=== PATIENT | male | born 1985 | race Caucasian/White ===

== ENCOUNTER 2017-08-13 03:24 | Observation (INO) | payer OTHER ==
[2017-08-13] MEDS ORDERED: Sodium Chloride 0.9% 1000 ML 1,000 ML IV STA (03:41)
[2017-08-13] MEDS ORDERED: GI COCKTAIL 45 ML (Maalox/Lidocaine) PO ONE ×2 (03:41→04:21)
--- NOTE | 2017-08-13 03:48 | ERPHSYRPT ---
- History of Present Illness Time Seen by Provider: 08/13/17 03:35 Historian: patient Exam Limitations: no limitations Patient Subjective Stated Complaint: mid abdomen pain starting at 0100. no vomiting no fever. has had similar episode but not this bad. Triage Nursing Assessment: distressed with mid epigastric pain. pain goes thru to back pain on palpation.. color pale skin w/d denies vomiting has had some diarrhea. denies fever but has had some burning with urination. Physician History: SINCE 89 TODAY PT HAS HAD CONSTANT SHARP EPIGASTRIC PAIN RADIATING TO THE BACK WITH DYSURIA AND DIARRHEA X2 WITHOUT BLOOD. PT DENIES CHEST PAIN, SHORTNESS OF AIR, FEVER. Allergies/Adverse Reactions: No Known Drug Allergies Allergy (Verified 08/13/17 03:42) Home Medications: Alprazolam 1 mg [Xanax 1 mg] 1 mg PO Q4-6HPRN PRN 08/13/17 [History] Paroxetine HCl 20 mg [Paxil 20 MG] 20 mg PO DAILY 08/13/17 [History] Hx Tetanus, Diphtheria Vaccination/Date Given: Yes Hx Influenza Vaccination/Date Given: No Hx Pneumococcal Vaccination/Date Given: No - Review of Systems Constitutional: No Fever Respiratory: No Dyspnea Cardiac: No Chest Pain Abdominal/Gastrointestinal: Abdominal Pain, Diarrhea Genitourinary Symptoms: Dysuria Musculoskeletal: Back Pain Endocrine: No Excessive Sweating All Other Systems: Reviewed and Negative - Past Medical History Pertinent Past Medical History: Yes Neurological History: Epilepsy - Past Surgical History Past Surgical History: Yes - Social History Smoking Status: Never smoker How long have you smoked: yrs Exposure to second hand smoke: No Drug Use: none Patient Lives Alone: No - Nursing Vital Signs Nursing Vital Signs: Initial Vital Signs Temperature 97.4 F 08/13/17 03:29 Pulse Rate 60 08/13/17 03:29 Respiratory Rate 20 08/13/17 03:29 Blood Pressure 134/88 08/13/17 03:29 O2 Sat by Pulse Oximetry 95 08/13/17 03:29 Pain Scale Pain Intensity 7 - Physical Exam General Appearance: alert Eye Exam: PERRL/EOMI Ears, Nose, Throat Exam: TMs normal, pharynx normal Neck Exam: normal inspection Respiratory Exam: lungs clear Cardiovascular Exam: normal heart sounds Gastrointestinal/Abdomen Exam: soft, normal bowel sounds, tenderness (MILD DIFFUSE TENDERNESS) Back Exam: normal range of motion Extremity Exam: normal inspection, No pedal edema Neurologic Exam: alert, cooperative Skin Exam: warm, dry SpO2 Interpretation: normal SpO2: 95 Oxygen Delivery: Room Air - Course Nursing assessment & vital signs reviewed: Yes Ordered Tests: Active Orders 24 hr Category Date Time Status IV Insertion STAT Care 08/13/17 03:41 Active AMYLASE Stat Lab 08/13/17 03:40 Completed CBC W DIFF Stat Lab 08/13/17 03:40 Completed CMP Stat Lab 08/13/17 03:40 Completed LIPASE Stat Lab 08/13/17 03:40 Completed MAG [MAGNESIUM] Stat Lab 08/13/17 03:40 Completed UA W/RFX UR CULTURE Stat Lab 08/13/17 03:40 Completed Urine Triage Profile Stat Lab 08/13/17 03:40 Completed Medication Summary Discontinued Medications Generic Name Dose Route Start Last Admin Trade Name Freq PRN Reason Stop Dose Admin Al Hydrox/Mg Hydrox/Simethicone Confirm 08/13/17 03:49 Maalox Es 30 Ml Unit Dose Administered 08/13/17 03:50 Dose 30 ml .ROUTE .STK-MED ONE Al Hydrox/Mg Hydrox/Simethicone Confirm 08/13/17 04:25 Maalox Es 30 Ml Unit Dose Administered 08/13/17 04:26 Dose 30 ml .ROUTE .STK-MED ONE Sodium Chloride 1,000 mls @ 999 mls/hr 08/13/17 03:41 08/13/17 03:55 Sodium Chloride 0.9% 1000 Ml IV 08/13/17 04:41 999 mls/hr .Q1H1M STA Administration Sodium Chloride Confirm 08/13/17 03:51 Sodium Chloride 0.9% 1000 Ml Administered 08/13/17 03:52 Dose 1,000 mls @ ud .ROUTE .STK-MED ONE Lidocaine HCl Confirm 08/13/17 03:49 Xylocaine Hcl Viscous * Administered 08/13/17 03:50 Dose 15 ml .ROUTE .STK-MED ONE Lidocaine HCl Confirm 08/13/17 04:24 Xylocaine Hcl Viscous * Administered 08/13/17 04:25 Dose 15 ml .ROUTE .STK-MED ONE Magnesium Hydroxide 45 ml 08/13/17 03:41 08/13/17 03:55 Gi Cocktail 45 Ml (Maalox/Lidocaine) PO 08/13/17 03:42 45 ml STAT ONE Administration Magnesium Hydroxide 45 ml 08/13/17 04:21 08/13/17 04:26 Gi Cocktail 45 Ml (Maalox/Lidocaine) PO 08/13/17 04:22 45 ml STAT ONE Administration Lab/Rad Data: Laboratory Result Diagrams 08/13/17 03:40 08/13/17 03:40 Laboratory Results 08/13/17 08/13/17 08/13/17 Range/Units 03:40 03:40 03:40 WBC (4.0-10.5) K/mm3 RBC (4.1-5.6) M/mm3 Hgb (12.5-18.0) gm/dl Hct (42-50) % MCV (78-100) fl MCH (26-32) pg MCHC (32-36) g/dl RDW (11.5-14.0) % Plt Count (150-450) K/mm3 MPV (6-9.5) fl Gran % (36.0-66.0) % Eos # (Auto) (0-0.5) Absolute Lymphs (auto) (1.0-4.6) Absolute Monos (auto) (0.0-1.3) Lymphocytes % (24.0-44.0) % Monocytes % (0.0-12.0) % Eosinophils % (0.00-5.0) % Basophils % (0.0-0.4) % Absolute Granulocytes (1.4-6.9) Basophils # (0-0.4) Sodium (137-145) mmol/L Potassium (3.5-5.1) mmol/L Chloride (98-107) mmol/L Carbon Dioxide (22-30) mmol/L Anion Gap (5-15) MEQ/L BUN (9-20) mg/dL Creatinine (0.66-1.25) mg/dL Estimated GFR ML/MIN Glucose (74-106) mg/dL Calcium (8.4-10.2) mg/dL Magnesium 2.2 (1.6-2.3) mg/dL Total Bilirubin (0.2-1.3) mg/dL AST (17-59) U/L ALT (0-50) U/L Alkaline Phosphatase (38-126) U/L Serum Total Protein (6.3-8.2) g/dL Albumin (3.5-5.0) g/dL Amylase (30-110) U/L Lipase (23-300) U/L Ur Collection Type CLEAN CATCH Urine Color YELLOW (YELLOW) Urine Appearance CLEAR (CLEAR) Urine pH 7.0 (5-6) Ur Specific [place] 1.015 (1.005-1.025) Urine Protein NEGATIVE (Negative) Urine Ketones NEGATIVE (NEGATIVE) Urine Blood NEGATIVE (0-5) Wili/ul Urine Nitrite NEGATIVE (NEGATIVE) Urine Bilirubin NEGATIVE (NEGATIVE) Urine Urobilinogen NORMAL (0-1) mg/dL Ur Leukocyte Esterase NEGATIVE (NEGATIVE) Urine Culture Reflexed NO (NO) Urine Glucose NEGATIVE (NEGATIVE) mg/dL Urine Opiates Level NEGATIVE (NEGATIVE) Ur Methadone NEGATIVE (NEGATIVE) Urine Barbiturates NEGATIVE (NEGATIVE) Ur Phencyclidine (PCP) NEGATIVE (NEGATIVE) Urine Amphetamine NEGATIVE (NEGATIVE) U Benzodiazepine Level NEGATIVE (NEGATIVE) Urine Cocaine NEGATIVE (NEGATIVE) Urine Marijuana (THC) NEGATIVE (NEGATIVE) Specimen Received 08/13/17 0340 08/13/17 08/13/17 Range/Units 03:40 03:40 WBC 15.7 H (4.0-10.5) K/mm3 RBC 5.55 (4.1-5.6) M/mm3 Hgb 16.7 (12.5-18.0) gm/dl Hct 47.8 (42-50) % MCV 86.1 (78-100) fl MCH 30.1 (26-32) pg MCHC 34.9 (32-36) g/dl RDW 13.0 (11.5-14.0) % Plt Count 329 (150-450) K/mm3 MPV 10.1 H (6-9.5) fl Gran % 75.0 H (36.0-66.0) % Eos # (Auto) 0.17 (0-0.5) Absolute Lymphs (auto) 2.66 (1.0-4.6) Absolute Monos (auto) 1.04 (0.0-1.3) Lymphocytes % 17.0 L (24.0-44.0) % Monocytes % 6.6 (0.0-12.0) % Eosinophils % 1.1 (0.00-5.0) % Basophils % 0.3 (0.0-0.4) % Absolute Granulocytes 11.78 H (1.4-6.9) Basophils # 0.04 (0-0.4) Sodium 139 (137-145) mmol/L Potassium 3.6 (3.5-5.1) mmol/L Chloride 102 (98-107) mmol/L Carbon Dioxide 26 (22-30) mmol/L Anion Gap 15.3 H (5-15) MEQ/L BUN 15 (9-20) mg/dL Creatinine 0.98 (0.66-1.25) mg/dL Estimated GFR > 60.0 ML/MIN Glucose 154 H (74-106) mg/dL Calcium 9.7 (8.4-10.2) mg/dL Magnesium (1.6-2.3) mg/dL Total Bilirubin 0.60 (0.2-1.3) mg/dL AST 20 (17-59) U/L ALT 31 (0-50) U/L Alkaline Phosphatase 107 (38-126) U/L Serum Total Protein 7.6 (6.3-8.2) g/dL Albumin 4.6 (3.5-5.0) g/dL Amylase 77 (30-110) U/L Lipase 161 (23-300) U/L Ur Collection Type Urine Color (YELLOW) Urine Appearance (CLEAR) Urine pH (5-6) Ur Specific [place] (1.005-1.025) Urine Protein (Negative) Urine Ketones (NEGATIVE) Urine Blood (0-5) Wili/ul Urine Nitrite (NEGATIVE) Urine Bilirubin (NEGATIVE) Urine Urobilinogen (0-1) mg/dL Ur Leukocyte Esterase (NEGATIVE) Urine Culture Reflexed (NO) Urine Glucose (NEGATIVE) mg/dL Urine Opiates Level (NEGATIVE) Ur Methadone (NEGATIVE) Urine Barbiturates (NEGATIVE) Ur Phencyclidine (PCP) (NEGATIVE) Urine Amphetamine (NEGATIVE) U Benzodiazepine Level (NEGATIVE) Urine Cocaine (NEGATIVE) Urine Marijuana (THC) (NEGATIVE) Specimen Received - Progress Discussed with : Sharath (OBS - [id number]) - Departure Time of Disposition: 05:18 Departure Disposition: Observation Clinical Impression: ABDOMINAL PAIN Condition: Stable Critical Care Time: No Referrals: IRINA COLEMAN [Primary Care Provider] -
[2017-08-13] MEDS ORDERED: XYLOCAINE HCl Viscous ONE ×2 (03:49→04:24)
[2017-08-13] MEDS ORDERED: MAALOX ES 30 ML UNIT DOSE ONE ×2 (03:49→04:25)
[2017-08-13] MEDS ORDERED: Sodium Chloride 0.9% 1000 ML 1,000 ML ONE (03:51)
[2017-08-13 03:54] LABS: BASOPHIL % 0.3 % (0.0-0.4); Basophil (Absolute #) 0.04 (0-0.4); Eosinophil % 1.1 % (0.00-5.0); Eosinophil (Absolute #) 0.17 (0-0.5); Granulocyte Absolute (ANC) 11.78 (1.4-6.9); Hematocrit 47.8 % (42-50); Hemoglobin 16.7 gm/dl (12.5-18.0); Lymphocyte (Absolute #) 2.66 (1.0-4.6); Mean Cell Volume 86.1 fl (78-100); Mean Corpuscular Hemoglobin 30.1 pg (26-32); Mean Corpuscular Hgb Concent. 34.9 g/dl (32-36); Mean Platelet Volume 10.1 fl (6-9.5); Monocyte (Absolute #) 1.04 (0.0-1.3); Monocytes % 6.6 % (0.0-12.0); Platelet Count 329 K/mm3 (150-450); Red Blood Count 5.55 M/mm3 (4.1-5.6); White Blood Count 15.7 K/mm3 (4.0-10.5)
[2017-08-13 04:15] LABS: ALBUMIN 4.6 g/dL (3.5-5.0); ALKALINE PHOSPHATASE 107 U/L (38-126); AMYLASE 77 U/L (30-110); ANION GAP 15.3 MEQ/L (5-15); BLOOD UREA NITROGEN 15 mg/dL (9-20); CHLORIDE 102 mmol/L (98-107); Calcium 9.7 mg/dL (8.4-10.2); Carbon Dioxide 26 mmol/L (22-30); Creatinine 1 0.98 mg/dL (0.66-1.25); Glucose 154 mg/dL (74-106); LIPASE 161 U/L (23-300); Potassium 3.6 mmol/L (3.5-5.1); SGOT/AST 20 U/L (17-59); SGPT/ALT 31 U/L (0-50); SODIUM 139 mmol/L (137-145); Total Protein 7.6 g/dL (6.3-8.2)
[2017-08-13 04:25] LABS: Amphetamine,Urine NEGATIVE (NEGATIVE); Barbiturate,Urine NEGATIVE (NEGATIVE); Benzodiazepine,Urine NEGATIVE (NEGATIVE); Cocaine,Urine NEGATIVE (NEGATIVE); Methadone,Urine NEGATIVE (NEGATIVE); Opiate,Urine NEGATIVE (NEGATIVE); PCP,Urine NEGATIVE (NEGATIVE); THC,Urine NEGATIVE (NEGATIVE)
[2017-08-13 04:39] LABS: Appearance CLEAR (CLEAR); Bilirubin NEGATIVE (NEGATIVE); Blood NEGATIVE Ery/ul (0-5); Glucose NEGATIVE (NEGATIVE); Ketones NEGATIVE (NEGATIVE); Leukocyte Esterase NEGATIVE (NEGATIVE); Nitrite NEGATIVE (NEGATIVE); Protein,Urine Dip NEGATIVE (Negative); Specific Gravity 1.015 (1.005-1.025); Urobilinogen NORMAL mg/dL (0-1)
[2017-08-13] MEDS ORDERED: PROTONIX 40 MG IV IV ONE ×2 (05:21→05:25)
[2017-08-13] MEDS ORDERED: Zofran 4 MG/2 ML VIAL IV ONE (05:36)
[2017-08-13] MEDS ORDERED: DIPRIVAN 200 MG/20 ML IV ONE (05:36)
[2017-08-13] MEDS ORDERED: Decadron 4 MG INJ IV ONE (05:36)
[2017-08-13] MEDS ORDERED: Zemuron 100 MG/10 ML IJ ONE (05:36)
[2017-08-13] MEDS ORDERED: Quelicin Fliptop 200 MG/10 ML IJ ONE (05:36)
[2017-08-13] MEDS ORDERED: TORAdol 30 mg Injection IJ ONE (05:36)
[2017-08-13] MEDS ORDERED: BRIDION 200MG/2ML IV ONE (05:36)
[2017-08-13] MEDS ORDERED: Phenergan 25 MG INJ IV PRN (06:09)
[2017-08-13] MEDS ORDERED: MORPHINE SULFATE 2 MG INJ IV PRN (06:09)
[2017-08-13] MEDS: Sodium Chloride 0.9% 1000 ML 1,000 ML IV SCH ×2 (06:37→17:55)
[2017-08-13] MEDS ORDERED: Versed 2 MG/2 ML Injection IV ONE (09:13)
[2017-08-13] MEDS ORDERED: SUBLIMAZE 250 MCG/5 ML IV ONE (09:13)
--- NOTE | 2017-08-13 09:53 | XRAY ---
Indication: Mid abdominal pain. Multiple contiguous axial images obtained through the abdomen and pelvis without contrast as ordered. Comparison: None Lung bases are clear. Heart is not enlarged. Noncontrasted stomach and bowel loops appear nonobstructed. Normal appendix. Gallbladder demonstrates several tiny cholesterol stones with gallbladder wall thickening and small pericholecystic fluid concerning for cholecystitis. No abnormal biliary distention. No free air. Nonobstructing bilateral renal micro-calculi, largest left lower pole measuring 6 mm. 1.9 cm right adrenal adenoma. Remaining liver, pancreas, spleen, left adrenal gland, both ureters, bladder, and aorta appear unremarkable for noncontrast exam. Osseous structures intact. Impression: 1. Cholelithiasis with CT features favoring cholecystitis. 2. Nonobstructing bilateral renal micro-calculi. 3. Right adrenal adenoma. CT DI 23.28
--- NOTE | 2017-08-13 10:51 | XRAY ---
Indication: Abdominal pain. Two-dimensional gallbladder sonogram performed. Comparison: None Site Operations Manager notes excessive bowel gas limiting evaluation of the pancreas and liver. Visualized portions of the liver and pancreas unremarkable. No ascites. Gallbladder partially contracted with numerous tiny intraluminal stones. Abnormal gallbladder wall thickening measuring 5.5 mm. No pericholecystic fluid. Common bile duct measured 4.1 mm. No intrahepatic biliary distention. Right kidney measures 9.9 cm in length and appears sonographically normal. Impression: Cholelithiasis with abnormal wall thickening favoring chronic cholecystitis. No abnormal biliary distention.
[2017-08-13] MEDS ORDERED: XANAX 1 MG PO PRN (11:25)
[2017-08-13] MEDS ORDERED: Nicoderm CQ 21 MG TOP SCH (13:45)
[2017-08-13] MEDS ORDERED: MEFOXIN 2 GM PREMIX** 2 GM/50 ML ML IV SCH (15:00)
[2017-08-13] MEDS ORDERED: Lactated Ringers 1,000 ML IV SCH ×2 (15:00→19:30)
[2017-08-13] MEDS ORDERED: Pepcid 20 MG VIAL IV ONE (15:03)
[2017-08-13] MEDS ORDERED: Pepcid 20 MG VIAL IV SCH (15:15)
[2017-08-13] MEDS ORDERED: Sensorcaine 0.25% 10 ML ONE (15:24)
[2017-08-13] MEDS ORDERED: Lactated Ringers 1,000 ML IV ONE (15:24)
[2017-08-13] MEDS ORDERED: Paxil 20 MG PO SCH (18:00)
[2017-08-13] MEDS ORDERED: MORPHINE SULFATE 4 MG INJ IV PRN (19:07)
[2017-08-13] MEDS ORDERED: NORCO 5/325 MG PO PRN (19:07)
[2017-08-13] MEDS ORDERED: Zofran 4 MG/2 ML VIAL IV PRN (19:07)
[2017-08-13] MEDS ORDERED: PROTONIX 40 MG IV IV SCH (22:00)
[2017-08-14] MEDS: Sodium Chloride 0.9% 1000 ML 1,000 ML IV SCH (02:41)
[2017-08-14] MEDS ORDERED: NORCO 5/325 MG PO PRN (06:28)
[2017-08-14 07:32] VITALS: BP 106/54; PULSE 76; O2SAT 96
--- NOTE | 2017-08-14 08:24 | PCM.DCORD ---
- Discharge Discharge Date: 08/14/17 Disposition: Home, Self-Care Condition: Stable Prescriptions: Continue Paroxetine HCl 20 mg [Paxil 20 MG] 20 mg PO 1800 Alprazolam 1 mg [Xanax 1 mg] 1 mg PO TIDPRN PRN PRN Reason: Anxiety Follow up with: SJ FOWLER [COURTESY STAFF] - 1 Week IRINA COLEMAN [Primary Care Provider] - 1 Week
--- NOTE | 2017-08-14 08:53 | CONS ---
CONSULT DATE: 08/13/2017 This patient is seen for Dr. David Aguirre who is director operations broadcast for our group today. He asked that I see the patient while I was down here doing some other outpatient procedures. HISTORY: Karthik Price over the past year or so he has had some intermittent upper abdominal pain associated with nausea and vomiting. Apparently he came in early this morning or during the night with epigastric pain with persistent nausea and vomiting. He is feeling a little bit better now. Apparently CT scan was not working last night but according to the staff he did have a CT scan today that showed cholelithiasis. He had ultrasound show gallbladder wall thickening, question of chronic cholecystitis or acute exacerbation of chronic cholecystitis. White blood cell count of 15.7 when he came in. He had a repeat since then. Liver function test and lipase within normal limits. PAST MEDICAL HISTORY: He has had some anxiety issues. He denies any chronic illnesses. History of epilepsy years ago according to the chart. He did mention this to me but not taking any medication. No recent seizures. He just had some recent anxiety issues. HOME MEDICATIONS: Xanax, Paxil. ALLERGIES: NKDA. FAMILY HISTORY: Cancer, diabetes, hypertension, liver problems, renal problems. SOCIAL HISTORY: One pack per day smoker. He reports occasional alcohol use, denies abuse. REVIEW OF SYSTEMS: Twelve systems reviewed per admission assessment. He denied any chest pain or palpitations. He is feeling better now. He wears glasses. Negative or noncontributory as above and per preadmission questionnaire. PHYSICAL EXAMINATION: Vital signs stable. GENERAL: No acute distress. HEENT: Sclera nonicteric. NECK: No JVD. CHEST: Equal excursion, nonlabored breathing. CVS: Regular rate and rhythm. ABDOMEN: Soft. No peritoneal signs. Some mild tenderness in epigastrium. EXTREMITIES: No significant edema. NEURO: Alert, moving extremities grossly symmetrically. No gross motor deficits noted. LAB DATA AND TESTS: Upper abdominal pain. CT and ultrasound showing cholelithiasis. He did have 1.9 cm adrenal adenoma per the radiologist. There is no bowel duct dilatation. He had microlithiasis as well. IMPRESSION: Symptomatic cholelithiasis probable chronic cholecystitis acute exacerbation. I feel he would benefit from cholecystectomy. Risks and benefits explained in detail but not limited to bleeding or infection, risk of trocar injury or hernia, small risk bowel, bladder or blood vessel injury, retained stone or sludge possibly requiring further procedure either open or ERCP, general risk of anesthesia, deep venous thrombosis, pulmonary embolism, pneumonia, perioperative risk of aches, pains, bloating, constipation and/or loose stools possibly even chronic in nature, possibility the procedure may not improve his symptoms. He may need further work up, testing, endoscopy, other studies or procedures. He understands and agrees to the planned procedure will proceed with laparoscopic cholecystectomy with possible open when OR time available.
[2017-08-14] MEDS ORDERED: Nicoderm CQ 21 MG TOP SCH (10:00)
--- NOTE | 2017-08-14 10:56 | OP ---
SURGERY DATE/TIME: 08/13/2017 1541 PREOPERATIVE DIAGNOSIS: Symptomatic cholelithiasis, acute exacerbation of chronic cholecystitis. POSTOPERATIVE DIAGNOSIS: Symptomatic cholelithiasis, acute exacerbation of chronic cholecystitis. Severe cholecystitis. PROCEDURE: Laparoscopic cholecystectomy. SURGEON: Dr. Tyree Stokes. ANESTHESIA: General. ESTIMATED BLOOD LOSS: Minimal. INDICATIONS: As noted above. Risks and benefits explained in detail but not limited to and consent obtained. DESCRIPTION OF PROCEDURE AND FINDINGS: The patient was taken to the OR. General anesthesia was induced. Abdomen prepped and draped in the usual sterile fashion. After official time out and no disagreement with planned procedure, a transverse incision made at the supraumbilical area. Fascia grasped and pulled upward. Veress needle inserted and tested with saline. Pneumoperitoneum accomplished insufflating opening pressure of 0-15. An 11 mm bladeless port and camera were inserted without difficulty followed by two - 5 mm right upper quadrant ports and 5 mm epigastric port. The gallbladder is grasped, quite distended, had extensive 5.5 to 6 mm thick wall. Dissection carried posterior lateral to anterior fashion. Extensive acute exacerbation, extensive chronic cholecystitis this took quite some time but slowly and carefully dissecting from posterior, lateral to anterior fashion. Slowly and carefully main cystic duct, infundibular and main cystic artery isolated until critical view obtained both anterior and posterior. It should be noted that the patient did have distended small bowel consistent with possible ileus or gross Crohn's disease. He did not have any evidence of prior abdominal surgery. No gross obstruction. This distended fluid-filled small bowel consisting of ileus whether he had gastroenteritis component or not in addition to acute exacerbation of chronic cholecystitis or just from his acute exacerbation of chronic cholecystitis is unclear. There was no inflammation in the right lower quadrant. Once the critical view was obtained both anteriorly and posteriorly, the cystic duct and cystic artery were clipped x3 and divided in usual fashion. Gallbladder slowly and carefully dissected free. It was quite vascular with clipping initial omental adhesion as necessary as well as side branches off cystic artery that were oozing directly on the gallbladder wall were clipped as necessary. It took some time but slowly and carefully this large stone filled distended gallbladder was slowly and carefully dissected free from the liver bed staying directly on the gallbladder wall clipping additional oozing side branch off the cystic artery directly on the gallbladder wall as necessary. Just prior to releasing from final attachments to the anterior edge of the liver the liver bed re-inspected. Copious amount of irrigation irrigating until clear. Clips were noted in place in cystic duct and cystic artery stumps. There are no signs of any active bleeding or bile leakage. It was felt there is no benefit in drain placement. Gallbladder released from final attachments to the anterior edge of the liver, placed in [place] sac, pulled up into the 10/11 umbilical port site. It was opened outside the abdomen, decompressed of bile with moderately large stones carefully crushed with [place] clamp, allowing the gallbladder to be pulled free and passed off without any intra-abdominal spillage. Fascia defect 10/11 closed with puncture closure device with #1 Vicryl. Pneumoperitoneum decompressed. After inspecting liver bed one last time clips noted in place in cystic duct and cystic artery stumps. There are no signs of any active bleeding or bile leakage. Copious amount of irrigation irrigating until clear. It was felt there was no benefit from drain placement. The wound was irrigated out. Skin incision closed with 4-0 Vicryl. Steri-Strips and sterile dressing applied. 0.25% Marcaine local injected along the skin incision fascial defect. The patient tolerated the procedure well. There were no immediate complications. There was no family available to discuss the findings with at this time.
--- NOTE | 2017-08-16 09:55 | SSS ---
DISCHARGE DIAGNOSIS: ACUTE CHOLECYSTITIS. CONSULTANTS: Dr. Stokes. OPERATIVE PROCEDURE: Laparoscopic cholecystectomy. HISTORY: The patient is a 32 year-old white male patient reporting severe abdominal pain in the epigastric region radiating through to the back. He had no vomiting and no fever. He has had similar episodes in the past but not to this degree. The patient was evaluated in the emergency room and admitted to the hospital for further evaluation and management. The CT scanner was down initially so we were unable to determine the initial source immediately. PAST MEDICAL/SURGICAL HISTORY: Otherwise significant for anxiety disorder. HOME MEDICATIONS: Alprazolam t.i.d. PRN for anxiety. Paroxetine 20 mg daily. ALLERGIES: NKDA. PHYSICAL EXAMINATION: Revealed a well nourished, well developed 32 year-old white male patient in mild to moderate discomfort presently. His vital signs in the emergency room showed a temperature 97.4F, pulse 60, respiratory rate 20, blood pressure 134/88. O2 saturation 95% on room air. HEENT: Normocephalic, atraumatic. Pupils equal round reactive to light. Extraocular movements intact. Oropharynx is pink and moist. NECK: Supple without lymphadenopathy, thyromegaly or JVD. CHEST: Clear to auscultation. HEART: Regular rate and rhythm without murmurs, rubs or gallops. ABDOMEN: Soft. No palpable masses were felt. There is no guarding or rebound present. EXTREMITIES: Without clubbing, cyanosis or edema. NEUROLOGIC: The patient is alert and oriented x3. LAB DATA AND TESTS: Initially showed a normal UA. He had a negative urine drug screen. His white blood cell count was elevated at 15,700. His hemoglobin 16.7, PLT count 329,000. He did have 35% granulocytes. His metabolic panel showed a nonfasting sugar at 154 and otherwise his metabolic panel was entirely normal. Amylase and lipase were in the normal range. Magnesium level was normal. HOSPITAL COURSE: The patient was admitted to the medicine gee. CT scanner when available examination did show cholelithiasis with CT features favoring cholecystitis, nonobstructive bilateral renal microcalculi and right renal adrenal adenoma. The patient had surgical consultation who agreed with the diagnosis. Gallbladder ultrasound showed cholecystitis with abnormal gallbladder wall thickening favoring chronic cholecystitis with no abnormal biliary distention. The patient did undergo laparoscopic cholecystectomy and by the next morning he was feeling much better and taking breakfast consisting of sausage and eggs. He was felt to be ready for discharge home at this point. Dr. Stokes wrote a prescription for [place] 5/325 mg on the chart record for him to have. He was allowed to go home. He was instructed to not take his Alprazolam along with the [place]. He will be seen in follow up in the office in one week or to return to the hospital for any further problems in the interim.
== END 2017-08-14 09:14 | disposition home or self-care (01) ==
LOC: ED 03:24 → MED SURG 05:35
PROVIDERS: ADMIT Family Medicine; ATTEND Family Medicine
PROC: 0FT44ZZ Resection of Gallbladder, Percutaneous Endoscopic Approach (ICD-10-PCS; principal; 2017-08-13)
DX: K80.00 Calculus of gallbladder with acute cholecystitis without obstruction (principal); K81.0 Acute cholecystitis; F41.9 Anxiety disorder, unspecified; Z79.899 Other long term (current) drug therapy
CPT/HCPCS: 36000; 36415; 47562; 74176; 76705; 80053; 80307; 81002; 82150; 83690; 83735; 85025; 96360; 96374; 99285; G0378; 88304; J0330; J0694; J1100; J1885; J2250; J2270; J2405; J2704; J3010; A9270-GY

== ENCOUNTER 2018-02-27 22:17 | Emergency (ER) | payer OTHER ==
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
[2018-02-27] MEDS ORDERED: AMOXIL 500 MG PO ONE (22:58)
[2018-02-27] MEDS ORDERED: NORCO 5/325 MG PO ONE (22:59)
[2018-02-27] MEDS ORDERED: NORCO 5/325 MG ONE (23:05)
[2018-02-27] MEDS ORDERED: AMOXIL 500 MG ONE (23:05)
[2018-02-27 23:26] VITALS: BP 146/110; PULSE 100; O2SAT 97
== END 2018-02-27 23:28 | disposition home or self-care (01) ==
LOC: ED 22:17
DX: K08.89 Other specified disorders of teeth and supporting structures (principal); K02.9 Dental caries, unspecified; S02.5XXA Fracture of tooth (traumatic), initial encounter for closed fracture; G40.909 Epilepsy, unspecified, not intractable, without status epilepticus; F41.9 Anxiety disorder, unspecified; Z72.0 Tobacco use
CPT/HCPCS: 99283; A9270-GY

== ENCOUNTER 2018-08-29 22:15 | Emergency (ER) | payer MEDICAID, OTHER ==
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
[2018-08-29 23:02] LABS: BASOPHIL % 0.6 % (0.0-0.4); Basophil (Absolute #) 0.06 (0-0.4); Eosinophil % 3.1 % (0.00-5.0); Granulocyte Absolute (ANC) 5.48 (1.4-6.9); Granulocytes % 56.8 % (36.0-66.0); Hematocrit 42.9 % (42-50); Hemoglobin 14.5 gm/dl (12.5-18.0); Lymphocyte (Absolute #) 2.82 (1.0-4.6); Lymphocytes % 29.3 % (24.0-44.0); Mean Cell Volume 89.7 fl (78-100); Mean Corpuscular Hemoglobin 30.3 pg (26-32); Mean Corpuscular Hgb Concent. 33.8 g/dl (32-36); Monocyte (Absolute #) 0.98 (0.0-1.3); Monocytes % 10.2 % (0.0-12.0); Platelet Count 256 K/mm3 (150-450); Red Blood Count 4.78 M/mm3 (4.1-5.6); Red Cell Distribution Width 13.2 % (11.5-14.0); White Blood Count 9.6 K/mm3 (4.0-10.5)
[2018-08-29 23:14] LABS: ALKALINE PHOSPHATASE 93 U/L (38-126); ANION GAP 13.8 MEQ/L (5-15); BLOOD UREA NITROGEN 16 mg/dL (9-20); CHLORIDE 105 mmol/L (98-107); Calcium 9.8 mg/dL (8.4-10.2); Carbon Dioxide 25 mmol/L (22-30); Creatinine 1 0.87 mg/dL (0.66-1.25); Glucose 93 mg/dL (74-106); SGOT/AST 17 U/L (17-59); SGPT/ALT 32 U/L (0-50); SODIUM 140 mmol/L (137-145); Total Protein 6.9 g/dL (6.3-8.2)
[2018-08-29 23:18] LABS: ACETAMINOPHEN < 10 ug/ml (10-30); ETHYL ALCOHOL < 10 mg/dL (0-10); SALICYLATE < 1.0 mg/dL (2-20)
[2018-08-30 00:04] VITALS: BP 126/86
[2018-08-30 01:06] LABS: Amphetamine,Urine NEGATIVE (NEGATIVE); Barbiturate,Urine NEGATIVE (NEGATIVE); Benzodiazepine,Urine NEGATIVE (NEGATIVE); Cocaine,Urine NEGATIVE (NEGATIVE); Methadone,Urine NEGATIVE (NEGATIVE); Opiate,Urine NEGATIVE (NEGATIVE); PCP,Urine NEGATIVE (NEGATIVE); THC,Urine NEGATIVE (NEGATIVE)
[2018-08-30 01:07] LABS: Appearance CLEAR (CLEAR); Bilirubin NEGATIVE (NEGATIVE); Blood NEGATIVE Ery/ul (0-5); Glucose NEGATIVE (NEGATIVE); Ketones NEGATIVE (NEGATIVE); Leukocyte Esterase NEGATIVE (NEGATIVE); Mucus SLIGHT /HPF (NEGATIVE); Nitrite NEGATIVE (NEGATIVE); Protein,Urine Dip NEGATIVE (Negative); RBC 0-2 /HPF (0-2); Specific Gravity 1.012 (1.005-1.025); Urobilinogen NEGATIVE mg/dL (0-1)
[2018-08-30 04:41] VITALS: PULSE 67; O2SAT 99
== END 2018-08-30 05:10 | disposition short-term general hospital (02) ==
LOC: ED 22:15
DX: R45.851 Suicidal ideations (principal)
CPT/HCPCS: 36415; 80053; 80307; 81001; 85025; 93005; 99285; G0481; G0480

== ENCOUNTER 2018-11-08 23:20 | Emergency (ER) | payer SELFPAY ==
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
[2018-11-08] MEDS ORDERED: MOTRIN 600 MG PO ONE (23:39)
[2018-11-08] MEDS ORDERED: PERCOCET TABLET 5/325MG PO STA (23:40)
[2018-11-08] MEDS ORDERED: MOTRIN 600 MG ONE (23:45)
[2018-11-08] MEDS ORDERED: PERCOCET TABLET 5/325MG ONE (23:45)
[2018-11-09 00:26] VITALS: BP 126/79; PULSE 69; O2SAT 99
--- NOTE | 2018-11-09 05:47 | XRAY ---
Indication: Pain following injury. Comparison: None 3 views of the right wrist demonstrates tiny scaphoid bone cyst. No other bony, articular, or soft tissue abnormalities.
== END 2018-11-09 00:26 | disposition home or self-care (01) ==
LOC: ED 23:20
DX: S60.211A Contusion of right wrist, initial encounter (principal); W22.03XA Walked into furniture, initial encounter; Y93.89 Activity, other specified
CPT/HCPCS: 73110; 99283; A9270-GY

== ENCOUNTER 2020-04-15 21:38 | Emergency (ER) | payer OTHER ==
[2020-04-15] MEDS ORDERED: Sodium Chloride 0.9% 1000 ML 1,000 ML IV STA (21:42)
[2020-04-15] MEDS ORDERED: Zofran 4 MG/2 ML VIAL IV ONE (21:42)
[2020-04-15] MEDS ORDERED: D50W 50 ml Abboject IV ONE ×2 (21:42→21:59)
[2020-04-15 21:55] LABS: Absolute Neutrophil Ct (ANC) 7.18 (1.4-6.9); BASOPHIL % 0.5 % (0.0-0.4); Basophil (Absolute #) 0.06 (0-0.4); Eosinophil (Absolute #) 0.12 (0-0.5); Lymphocyte (Absolute #) 3.36 (1.0-4.6); Lymphocytes % 28.8 % (24.0-44.0); Mean Cell Volume 89.3 fl (78-100); Mean Corpuscular Hemoglobin 29.8 pg (26-32); Mean Corpuscular Hgb Concent. 33.3 g/dl (32-36); Mean Platelet Volume 9.9 fl (7.5-11.0); Monocyte (Absolute #) 0.96 (0.0-1.3); Monocytes % 8.2 % (0.0-12.0); Neutrophil % 61.5 % (36.0-66.0); Platelet Count 358 K/mm3 (150-450); Red Blood Count 5.71 M/mm3 (4.1-5.6); Red Cell Distribution Width 13.5 % (11.5-14.0); White Blood Count 11.7 K/mm3 (4.0-10.5)
[2020-04-15 21:59] LABS: Appearance CLEAR (CLEAR); Bilirubin NEGATIVE (NEGATIVE); Blood NEGATIVE Ery/ul (0-5); Glucose NEGATIVE (NEGATIVE); Ketones NEGATIVE (NEGATIVE); Leukocyte Esterase NEGATIVE (NEGATIVE); Mucus SLIGHT /HPF (NEGATIVE); Nitrite NEGATIVE (NEGATIVE); Protein,Urine Dip NEGATIVE (Negative); Specific Gravity 1.002 (1.005-1.025); Urobilinogen NEGATIVE mg/dL (0-1)
[2020-04-15] MEDS ORDERED: Zofran 4 MG/2 ML VIAL ONE (21:59)
[2020-04-15] MEDS ORDERED: Sodium Chloride 0.9% 1000 ML 1,000 ML ONE (21:59)
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
[2020-04-15 22:04] VITALS: BP 117/81; PULSE 96; O2SAT 96
[2020-04-15 22:08] LABS: ALBUMIN 3.8 g/dL (3.5-5.0); ALKALINE PHOSPHATASE 87 U/L (38-126); ANION GAP 11.9 MEQ/L (5-15); BLOOD UREA NITROGEN 6 mg/dL (9-20); CHLORIDE 108 mmol/L (98-107); Calcium 9.5 mg/dL (8.4-10.2); Carbon Dioxide 22 mmol/L (22-30); Creatinine 1 0.92 mg/dL (0.66-1.25); EST GLOMERULAR FILTRATION RATE > 60.0 ML/MIN; ETHYL ALCOHOL 141 mg/dL (0-10); Glucose 82 mg/dL (74-106); Potassium 3.5 mmol/L (3.5-5.1); SGOT/AST 25 U/L (17-59); SGPT/ALT 22 U/L (0-50); SODIUM 138 mmol/L (137-145); Total Protein 6.3 g/dL (6.3-8.2)
[2020-04-15 22:09] LABS: ACETAMINOPHEN < 10 ug/ml (10-30); SALICYLATE < 1.0 mg/dL (2-20)
[2020-04-15 22:13] LABS: Amphetamine,Urine NEGATIVE (NEGATIVE); Barbiturate,Urine NEGATIVE (NEGATIVE); Benzodiazepine,Urine NEGATIVE (NEGATIVE); Cocaine,Urine NEGATIVE (NEGATIVE); Methadone,Urine NEGATIVE (NEGATIVE); Opiate,Urine NEGATIVE (NEGATIVE); PCP,Urine NEGATIVE (NEGATIVE); THC,Urine NEGATIVE (NEGATIVE)
== END 2020-04-15 23:58 | disposition left against medical advice (07) ==
LOC: ED 21:38
DX: F10.10 Alcohol abuse, uncomplicated (principal); E16.2 Hypoglycemia, unspecified
CPT/HCPCS: 36000; 36415; 80053; 80307; 81001; 82947; 84484; 85025; 93005; 96360; 96374; 96375; 99285; J2405; G0480

== ENCOUNTER 2020-09-14 23:30 | Emergency (ER) | payer OTHER ==
[2020-09-15 00:08] LABS: Absolute Neutrophil Ct (ANC) 6.75 (1.4-6.9); BASOPHIL % 0.4 % (0.0-0.4); Basophil (Absolute #) 0.04 (0-0.4); Eosinophil % 1.1 % (0.00-5.0); Hematocrit 48.7 % (42-50); Hemoglobin 16.1 gm/dl (12.5-18.0); Lymphocyte (Absolute #) 1.76 (1.0-4.6); Lymphocytes % 19.2 % (24.0-44.0); Mean Cell Volume 90.5 fl (78-100); Mean Corpuscular Hemoglobin 29.9 pg (26-32); Mean Corpuscular Hgb Concent. 33.1 g/dl (32-36); Mean Platelet Volume 9.9 fl (7.5-11.0); Monocyte (Absolute #) 0.54 (0.0-1.3); Monocytes % 5.9 % (0.0-12.0); Neutrophil % 73.4 % (36.0-66.0); Platelet Count 280 K/mm3 (150-450); Red Blood Count 5.38 M/mm3 (4.1-5.6); White Blood Count 9.2 K/mm3 (4.0-10.5)
[2020-09-15 00:18] LABS: Appearance SLIGHTLY CLOUDY (CLEAR); Bilirubin NEGATIVE (NEGATIVE); Blood NEGATIVE Ery/ul (0-5); Glucose NEGATIVE (NEGATIVE); Ketones NEGATIVE (NEGATIVE); Leukocyte Esterase NEGATIVE (NEGATIVE); Mucus SLIGHT /HPF (NEGATIVE); Nitrite NEGATIVE (NEGATIVE); Protein,Urine Dip NEGATIVE (Negative); Specific Gravity 1.015 (1.005-1.025); Urobilinogen NEGATIVE mg/dL (0-1); WBC 0-2 /HPF (0-5)
[2020-09-15 00:20] LABS: ACETAMINOPHEN < 10 ug/ml (10-30); ALKALINE PHOSPHATASE 86 U/L (38-126); ANION GAP 11.8 MEQ/L (5-15); BLOOD UREA NITROGEN 7 mg/dL (9-20); CHLORIDE 102 mmol/L (98-107); Calcium 9.1 mg/dL (8.4-10.2); Carbon Dioxide 27 mmol/L (22-30); Creatinine 1 0.99 mg/dL (0.66-1.25); EST GLOMERULAR FILTRATION RATE > 60.0 ML/MIN; ETHYL ALCOHOL < 10 mg/dL (0-10); Glucose 129 mg/dL (74-106); Potassium 3.9 mmol/L (3.5-5.1); SALICYLATE < 1.0 mg/dL (2-20); SGOT/AST 24 U/L (17-59); SGPT/ALT 22 U/L (0-50); SODIUM 137 mmol/L (137-145); Total Protein 6.7 g/dL (6.3-8.2)
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
[2020-09-15 00:28] LABS: Barbiturate,Urine NEGATIVE (NEGATIVE); Benzodiazepine,Urine NEGATIVE (NEGATIVE); Cocaine,Urine NEGATIVE (NEGATIVE); Methadone,Urine NEGATIVE (NEGATIVE); Opiate,Urine NEGATIVE (NEGATIVE); PCP,Urine NEGATIVE (NEGATIVE); THC,Urine NEGATIVE (NEGATIVE)
[2020-09-15 00:50] LABS: Amphetamine,Urine POSITIVE (NEGATIVE)
[2020-09-15 02:04] LABS: COVID AG -BINAX NOW RAPID TEST NEGATIVE (NEGATIVE)
[2020-09-15 04:31] VITALS: BP 90/57; PULSE 97
[2020-09-17 08:40] VITALS: O2SAT 99
== END 2020-09-15 04:32 | disposition short-term general hospital (02) ==
LOC: ED 23:30
DX: R45.851 Suicidal ideations (principal); F41.8 Other specified anxiety disorders
CPT/HCPCS: 36415; 80053; 80307; 81001; 85025; 90791; 99000; 99285; Q3014; G0480

== ENCOUNTER 2024-02-09 23:12 | Emergency (ER) | payer MEDICAID ==
[2024-02-10 00:19] VITALS: RESP 19; TEMP 97.8; O2SAT 100
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
[2024-02-10] MEDS ORDERED: Cyclobenzaprine 10 MG ONE (00:30)
[2024-02-10] MEDS ORDERED: Depo-Medrol 80 MG/ML ONE (00:31)
[2024-02-10] MEDS: Depo-Medrol 80 MG/ML IM ONE (00:42)
[2024-02-10] MEDS: Cyclobenzaprine 10 MG PO ONE (00:42)
--- NOTE | 2024-02-10 01:37 | XRAY ---
CLINICAL HISTORY: back pain COMPARISON: None TECHNIQUE: CT non-contrast scan of lumbar spine done. Axial images were obtained with reformatted coronal and sagittal images and submitted for interpretation. One of the following dose reduction techniques was utilized for this exam: Automated exposure control, adjustment of the mA and/or kV according to patient size, and use of iterative reconstruction. FINDINGS: Vertebrae: Lumbar lordosis is maintained. Normal alignment of the lumbar vertebrae. Flattening and irregularity of the endplates of T12 and L1 with around 25% anterior wedging of the T12 vertebral body and to a lesser degree of the L1 vertebral body. posterior osteophyte of the inferior margin of T12 indenting the thecal sac. No other fractures, lytic or sclerotic lesions. Normal bone density without evidence of osteopenia or osteoporosis. Intervertebral Discs: Normal height of the intervertebral discs. T12-L1, L1-2, and L2-3 marginal osteophyte formation and endplate Schmorl nodes. Spinal Canal and Neural Foramina: The spinal canal is of normal caliber with no evidence of spinal stenosis. Neural foramina are patent bilaterally at all levels. No evidence of nerve root compression. Facet Joints: Normal appearance of the facet joints. No evidence of facet arthropathy or significant degenerative changes. Soft Tissues: Normal appearance of the paraspinal soft tissues. No abnormal masses, fluid collections, or signs of inflammation. 17 mm left renal stone. A few tiny bilateral renal stones are seen. IMPRESSION: 1. Flattening and irregularity of the endplates of T12 and L1 with around 25% anterior wedging of the T12 vertebral body and to a lesser degree of the L1 vertebral body. 2. posterior osteophyte of the inferior margin of T12 indenting the thecal sac. Further evaluation by MRI is advised. 3. 17 mm left renal stone. A few tiny bilateral renal stones are seen. [facility] was called at [phone] at 12:28 AM [employer] on 02/10/2024 and Re(nurse) was informed regarding the presence of Important Medical Findings in the report. Electronically Signed by: Annika Cooper MD. (02/10/2024 01:32:55 EDT)
[2024-02-10 02:12] VITALS: BP 134/89; PULSE 87
== END 2024-02-10 02:21 | disposition home or self-care (01) ==
LOC: ED 23:12
DX: M54.50 Low back pain, unspecified (principal); M62.830 Muscle spasm of back; M25.78 Osteophyte, vertebrae; N20.0 Calculus of kidney; Z72.0 Tobacco use
CPT/HCPCS: 72131; 96372; 99283; A9270-GY